=== PATIENT | male | born 1960 | race Caucasian/White ===

== ENCOUNTER 2024-02-24 15:36 | Outpatient (CLI) | payer BC, SELFPAY ==
--- NOTE | 2024-02-24 15:40 | XR_ITS ---
FINAL REPORT CLINICAL HISTORY: Assessment of fecal burden or stool in right colon constipation x6wks COMPARISON: None FINDINGS: A single view of the abdomen was obtained. There is a normal bowel gas pattern. There is no significant fecal impaction. There are left pelvic calcifications compatible with phleboliths. IMPRESSION: Unremarkable. Reviewed, Interpreted and Dictated by Hunter Shetty MD Transcribed by Marli Masters Authenticated and [facility]
== END 2024-02-24 23:59 | disposition home or self-care (01) ==
LOC: RAD 15:38
PROVIDERS: Visit Provider Internal Medicine Gastroenterology
DX: K59.00 Constipation, unspecified (principal)
CPT/HCPCS: 74018